=== PATIENT | female | born 1955 | race Caucasian/White ===

== ENCOUNTER 2021-10-04 09:25 | Inpatient (IN) ==
[2021-10-04] MEDS ORDERED: cefOXitin 2,000 MG in 0.9 % Sodium Chloride Mini Bag 100 ML IVPB ONE (09:44)
[2021-10-04] MEDS ORDERED: Ringers Solution, Lactated 1,000 ML IVC SCH (09:45)
[2021-10-04] MEDS ORDERED: *HR* HYDROmorphone PF 0.5 MG/0.5 ML SYRINGE IVP PRN (10:33)
[2021-10-04] MEDS ORDERED: *HR* OxyCODONE Immed Rel 5 MG TABLET PO PRN (10:33)
[2021-10-04] MEDS ORDERED: Acetaminophen IV 1,000 MG/100 ML BAG IVPB ONE (10:33)
[2021-10-04] MEDS ORDERED: *HR* Metoprolol 5 MG/5 ML VIAL IVP PRN (10:33)
[2021-10-04] MEDS ORDERED: Ondansetron 4 MG/2 ML VIAL IVP PRN ×2 (10:33→20:55)
[2021-10-04] MEDS ORDERED: Albuterol 2.5 MG/3 ML NEBULIZER IH PRN (10:33)
[2021-10-04] MEDS ORDERED: Famotidine 20 MG/2 ML VIAL IVP ONE (10:33)
[2021-10-04] MEDS ORDERED: *HR* Midazolam HCl 2 MG/2 ML VIAL ONE (12:06)
[2021-10-04] MEDS ORDERED: *HR* FentaNYL (PF) 100 MCG/2 ML VIAL ONE ×3 (12:06→15:50)
[2021-10-04] MEDS ORDERED: *HR* Propofol 200 MG/20 ML VIAL IVP ONE (12:06)
[2021-10-04] MEDS ORDERED: Ondansetron 4 MG/2 ML VIAL ONE (12:10)
[2021-10-04] MEDS ORDERED: *HR* Rocuronium Bromide 50 MG/5 ML VIAL ONE ×3 (12:10→16:48)
[2021-10-04] MEDS ORDERED: Lidocaine -MPF 2% 5 ML VIAL ONE (12:10)
[2021-10-04] MEDS ORDERED: *HR* Succinylcholine 200 MG/10 ML VIAL IVP ONE (12:10)
[2021-10-04] MEDS ORDERED: Lidocaine HCL 4 ML Topical Solution (Laryng-O-Jet Kit Sterile Pak) TP ONE (12:10)
[2021-10-04] MEDS ORDERED: *HR* Labetalol 20 MG/4 ML SYRINGE IVP ONE (16:07)
[2021-10-04] MEDS ORDERED: *HR* HYDROMORPHONE 2 MG/ML VIAL ONE (17:43)
[2021-10-04] MEDS ORDERED: Ketorolac 30 MG/ML VIAL ONE (18:06)
[2021-10-04] MEDS ORDERED: *HR* FentaNYL (PF) 100 MCG/2 ML VIAL IVP PRN (20:55)
[2021-10-04] MEDS ORDERED: Naloxone 0.4 MG/ML INJ IVP PRN (20:55)
[2021-10-04] MEDS: Metoprolol XL (24 HR) Succ 50 MG TAB.ER.24H PO SCH (21:44)
[2021-10-04] MEDS: 0.9 % Sodium Chloride 1,000 ML IVC SCH (21:45)
[2021-10-04] MEDS: Ketorolac 30 MG/ML VIAL IVP SCH (23:32)
[2021-10-04] MEDS: Piperacillin/Tazobactam 3.375 GM in 0.9 % Sodium Chloride Mini Bag 100 ML IVPB SCH (23:35)
[2021-10-05] MEDS: Acetaminophen IV 1,000 MG/100 ML BAG IVPB SCH ×3 (00:27→16:25)
[2021-10-05] MEDS: 0.9 % Sodium Chloride 1,000 ML IVC SCH ×2 (00:44→15:44)
[2021-10-05 01:34] LABS: Basophils % 0.1 %; Hematocrit 40.1 % (35.3-44.9); Hemoglobin 13.4 g/dL (11.5-15.4); Immature Granulocytes % 0.3 % (0-4); Lymphocytes # 0.8 K/mcL (0.6-4.6); Mean Corpuscular HGB Conc 33.4 g/dL (31.6-35.5); Mean Corpuscular Hemoglobin 29.2 pg (28.0-33.3); Mean Corpuscular Volume 87.4 fL (83.0-100.0); Mean Platelet Volume 9.9 fL (9.4-12.4); Monocytes # 0.6 K/mcL (0.0-1.3); Monocytes % 4.9 %; Neutrophils # 10.5 K/mcL (1.6-8.9); Platelet Count 196 K/mcL (140-400); Red Blood Count 4.59 M/mcL (3.82-4.97); Red Cell Distribution Width 12.1 % (11.5-14.5); Segmented Neutrophils % 87.7 %
[2021-10-05 01:36] LABS: BUN/Creatinine Ratio 18 (6-26); Blood Urea Nitrogen 13 mg/dL (8-23); Calcium 8.4 mg/dL (8.6-10.3); Carbon Dioxide 21 mEq/L (23-29); Chloride 105 mEq/L (98-107); Glucose 178 mg/dL (70-105); Magnesium 1.4 mg/dL (1.6-2.6); Osmolality,Calculated 285 (280-300); Phosphorous 3.3 mg/dL (2.7-4.5); Potassium 4.3 mEq/L (3.5-5.1); Sodium 135 mEq/L (136-145); eGFR For African Americans > 60 (> 60); eGFR For Non-African Americans > 60 (> 60)
[2021-10-05] MEDS: Ketorolac 30 MG/ML VIAL IVP SCH ×2 (06:05→16:27)
[2021-10-05] MEDS: Metoprolol XL (24 HR) Succ 50 MG TAB.ER.24H PO SCH ×2 (10:47→20:48)
[2021-10-05] MEDS: Loratadine 10 MG TABLET PO SCH (10:47)
[2021-10-05] MEDS: Piperacillin/Tazobactam 3.375 GM in 0.9 % Sodium Chloride Mini Bag 100 ML IVPB SCH ×2 (10:47→23:42)
[2021-10-05] MEDS ORDERED: Simethicone 80 MG TAB.CHEW PO PRN (15:15)
[2021-10-05] MEDS ORDERED: 0.9 % Sodium Chloride 1,000 ML IVC SCH (15:17)
[2021-10-05] MEDS: *HR* Heparin 5,000 UNIT/ML VIAL SQ SCH ×2 (16:26→20:47)
[2021-10-06 02:43] LABS: Basophils % 0.2 %; Eosinophils % 0.1 %; Hematocrit 35.5 % (35.3-44.9); Hemoglobin 11.6 g/dL (11.5-15.4); Immature Granulocytes % 0.4 % (0-4); Lymphocytes # 1.4 K/mcL (0.6-4.6); Lymphocytes % 13.5 %; Mean Corpuscular HGB Conc 32.7 g/dL (31.6-35.5); Mean Corpuscular Hemoglobin 29.4 pg (28.0-33.3); Mean Corpuscular Volume 90.1 fL (83.0-100.0); Monocytes # 0.9 K/mcL (0.0-1.3); Monocytes % 8.3 %; Platelet Count 174 K/mcL (140-400); Red Blood Count 3.94 M/mcL (3.82-4.97); Red Cell Distribution Width 12.6 % (11.5-14.5); Segmented Neutrophils % 77.5 %; White Blood Count 10.3 K/mcL (4.3-11.1)
[2021-10-06] MEDS: Ketorolac 30 MG/ML VIAL IVP SCH ×5 (02:47→21:18)
[2021-10-06] MEDS: Acetaminophen IV 1,000 MG/100 ML BAG IVPB SCH ×2 (02:47→06:45)
[2021-10-06 02:58] LABS: BUN/Creatinine Ratio 19 (6-26); Blood Urea Nitrogen 12 mg/dL (8-23); Calcium 8.4 mg/dL (8.6-10.3); Carbon Dioxide 24 mEq/L (23-29); Chloride 108 mEq/L (98-107); Glucose 149 mg/dL (70-105); Magnesium 1.9 mg/dL (1.6-2.6); Osmolality,Calculated 287 (280-300); Phosphorous 2.5 mg/dL (2.7-4.5); Potassium 4.4 mEq/L (3.5-5.1); Sodium 137 mEq/L (136-145); eGFR For African Americans > 60 (> 60); eGFR For Non-African Americans > 60 (> 60)
[2021-10-06] MEDS ORDERED: *HR* Heparin 5,000 UNIT/ML VIAL SQ SCH (06:00)
[2021-10-06] MEDS: *HR* Heparin 5,000 UNIT/ML VIAL SQ SCH ×3 (06:42→21:18)
[2021-10-06] MEDS: Piperacillin/Tazobactam 3.375 GM in 0.9 % Sodium Chloride Mini Bag 100 ML IVPB SCH ×3 (06:45→19:46)
[2021-10-06] MEDS ORDERED: Dextrose Gel 15 GM/37.5 ML TUBE PO PRN ×2 (07:49)
[2021-10-06] MEDS ORDERED: *HR* Dextrose 50 % in Water (Syg) 50 ML SYRINGE IVP PRN (07:49)
[2021-10-06] MEDS ORDERED: D5% in Water 1,000 ML IVC PRN (07:49)
[2021-10-06] MEDS ORDERED: Acetaminophen 325 MG TABLET PO PRN (07:56)
[2021-10-06] MEDS ORDERED: *HR* HYDROcodone/Acet 5/325 mg TABLET PO PRN (07:56)
[2021-10-06] MEDS: Metoprolol XL (24 HR) Succ 50 MG TAB.ER.24H PO SCH ×2 (10:10→21:18)
[2021-10-06] MEDS: Loratadine 10 MG TABLET PO SCH (10:11)
[2021-10-06] MEDS: Insulin LISPRO 300 UNITS/3 ML VIAL SUBQ SCH (16:07)
[2021-10-06] MEDS ORDERED: *HR* Metoprolol 5 MG/5 ML VIAL IVP PRN (16:40)
[2021-10-07] MEDS: Ketorolac 30 MG/ML VIAL IVP SCH ×3 (03:30→14:53)
[2021-10-07] MEDS: Piperacillin/Tazobactam 3.375 GM in 0.9 % Sodium Chloride Mini Bag 100 ML IVPB SCH ×3 (03:31→18:13)
[2021-10-07 04:58] LABS: Basophils % 0.4 %; Eosinophils # 0.2 K/mcL (0.0-0.6); Eosinophils % 2.7 %; Hematocrit 35.5 % (35.3-44.9); Hemoglobin 11.7 g/dL (11.5-15.4); Immature Granulocytes % 0.8 % (0-4); Lymphocytes % 26.1 %; Mean Corpuscular Hemoglobin 29.6 pg (28.0-33.3); Mean Corpuscular Volume 89.9 fL (83.0-100.0); Mean Platelet Volume 9.6 fL (9.4-12.4); Monocytes # 0.6 K/mcL (0.0-1.3); Monocytes % 7.8 %; Neutrophils # 4.8 K/mcL (1.6-8.9); Platelet Count 164 K/mcL (140-400); Red Blood Count 3.95 M/mcL (3.82-4.97); Red Cell Distribution Width 12.6 % (11.5-14.5); Segmented Neutrophils % 62.2 %; White Blood Count 7.7 K/mcL (4.3-11.1)
[2021-10-07] MEDS: *HR* Heparin 5,000 UNIT/ML VIAL SQ SCH ×3 (05:22→20:19)
[2021-10-07 05:29] LABS: BUN/Creatinine Ratio 20 (6-26); Blood Urea Nitrogen 11 mg/dL (8-23); Calcium 8.4 mg/dL (8.6-10.3); Carbon Dioxide 25 mEq/L (23-29); Chloride 109 mEq/L (98-107); Glucose 113 mg/dL (70-105); Osmolality,Calculated 290 (280-300); Sodium 140 mEq/L (136-145); eGFR For African Americans > 60 (> 60); eGFR For Non-African Americans > 60 (> 60)
[2021-10-07] MEDS: Insulin LISPRO 300 UNITS/3 ML VIAL SUBQ SCH ×4 (07:16→18:08)
[2021-10-07] MEDS: Metoprolol XL (24 HR) Succ 50 MG TAB.ER.24H PO SCH ×2 (10:33→20:19)
[2021-10-07] MEDS: Loratadine 10 MG TABLET PO SCH (10:33)
[2021-10-07] MEDS ORDERED: *HR* OxyCODONE Immed Rel 5 MG TABLET PO PRN (15:09)
[2021-10-07] MEDS ORDERED: Ibuprofen 800 MG TABLET PO PRN (15:09)
[2021-10-07] MEDS ORDERED: *HR* HYDROcodone/Acet 5/325 mg TABLET PO PRN (15:10)
[2021-10-07] MEDS: *HR* Metformin 500 MG TABLET PO SCH (18:12)
[2021-10-08] MEDS: Piperacillin/Tazobactam 3.375 GM in 0.9 % Sodium Chloride Mini Bag 100 ML IVPB SCH (02:12)
[2021-10-08] MEDS: *HR* Heparin 5,000 UNIT/ML VIAL SQ SCH (05:57)
[2021-10-08 08:02] VITALS: O2SAT 94
[2021-10-08] MEDS: Insulin LISPRO 300 UNITS/3 ML VIAL SUBQ SCH (08:06)
[2021-10-08] MEDS: *HR* Metformin 500 MG TABLET PO SCH (08:09)
[2021-10-08] MEDS: Loratadine 10 MG TABLET PO SCH (08:09)
[2021-10-08] MEDS: Metoprolol XL (24 HR) Succ 50 MG TAB.ER.24H PO SCH (08:10)
[2021-10-08] MEDS ORDERED: Aspirin 81 MG TAB.CHEW PO SCH (09:00)
[2021-10-08 15:30] VITALS: PULSE 63; TEMP 98.3
[2021-10-08 17:48] VITALS: BP 122/86
== END 2021-10-08 17:59 | disposition home health service (06) | DRG 674 ==
LOC: SAMDAY 09:25 → 3ANU 19:52
PROVIDERS: ADMIT Surgery; ATTEND Surgery